=== PATIENT | male | born 2000 | race Caucasian/White ===

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

== ENCOUNTER 2020-01-04 20:47 | Emergency (ER) | payer SELFPAY ==
[2020-01-04 21:11] VITALS: BP 119/75; PULSE 64; RESP 14; TEMP 37.1; O2SAT 98; BMI 23.7
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
[2020-01-04 22:02] VITALS: BP 107/62; PULSE 65; RESP 14; O2SAT 99
== END 2020-01-04 22:03 | disposition home or self-care (01) ==
PROVIDERS: Emergency Provider Nurse Practitioner Family; PCP Pediatrics Adolescent Medicine
DX: S09.8XXA Other specified injuries of head, initial encounter (principal); W20.8XXA Other cause of strike by thrown, projected or falling object, initial encounter
CPT/HCPCS: 12345; 70450; 99281; 99282

== ENCOUNTER 2022-04-23 12:38 | Emergency (ER) | payer SELFPAY ==
[2022-04-23 12:51] VITALS: BP 136/83; PULSE 95; RESP 16; TEMP 37.2; O2SAT 98
--- NOTE | 2022-04-23 12:56 | ECG_ITS ---
[facility] Test Date: 2022-04-23 Pat Name: Santosh Lawson Department: Room: Gender: Male Management Trainer: : 2000 Requested By: Sydnie Alfaro Order Number: [id number] Beverley MD: Andrew Patterson M.D. Measurements Intervals [place] Rate: 82 P: 67 KS: 127 QRS: 89 QRSD: 91 T: 61 QT: 336 QTc: 393 Interpretive Statements SINUS RHYTHM No previous ECG available for comparison Electronically Signed On 04-24-2022 11:11:10 ADMITTING COUNSELOR by Andrew Patterson M.D. [email or web address]
--- NOTE | 2022-04-23 12:57 | XRR_ITS ---
PROCEDURE INFORMATION: Exam: XR Chest Exam date and time: 04/23/2022 1:12 PM Age: 21 years old Clinical indication: Chest wall pain; Additional info: Cp TECHNIQUE: Imaging protocol: Radiologic exam of the chest. Views: 1 view. COMPARISON: No relevant prior studies available. FINDINGS: Lungs: Unremarkable. No consolidation. Pleural spaces: Unremarkable. No pleural effusion. No pneumothorax. Heart/Mediastinum: Unremarkable. No cardiomegaly. Bones/joints: Unremarkable. XR/XR chest 1V portable [id number] IMPRESSION: No acute findings.
[2022-04-23 15:27] LABS: Influenza A by IFA negative (Negative); Influenza B by IFA negative (Negative); SARS Covid-2 Antigen negative (Negative)
--- NOTE | 2022-04-23 15:30 | PC.PHAR ---
PT STATES HE TAKES NO RX OR OTC MEDICATIONS NO MEDS PULL UP ON EXT MED HISTORY
[2022-04-23] MEDS: ketorolac 60 mg/2 mL INJ IM (16:03)
--- NOTE | 2022-04-23 16:45 | ED_ITS ---
HPI - Chest Pain General: Chief Complaint: Chest Pain Stated Complaint: Sharp pains in upper chest, SOB Time Seen by Provider: 04/23/22 13:01 History of Present Illness: 21-year-old male patient presents to the emergency department with chest pain across the anterior aspect of his chest. Patient states that this is more of a burning sensation. Patient denies any shortness of breath. Patient denies any dizziness. Patient denies any cough or congestion. 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 Patient denies any back pain. Patient denies any fever. Patient denies any other past medical history. Associated symptoms: Deny abdominal pain, diaphoresis, dyspnea, fever(s), nausea, palpitations, syncope or vomiting Review of Systems Const: Denies: fever(s), chills, body aches, change in appetite, change in weight, fatigue, malaise or diaphoresis Eyes: Denies: change in vision, blurry vision, blind spots, photophobia, eye discomfort, eye discharge, eye redness, floaters or seeing flashes ENMT: Denies: throat pain, uvular edema, enlarged tonsils, odynophagia, hoarse ness, mouth pain, swelling of lips/tongue, oral sores, bleeding gums, dental pain, dry mouth, ear or mastoid pain, ear discharge, change in hearing, tinnitus, disequilibrium, nasal discharge, nasal congestion, post nasal drip or sinus pain Card: Denies: palpitations, irregular heart rhythm, edema, swelling of feet/ankles, lightheadedness, syncope, pre-syncope, dyspnea on exertion, orthopnea, leg pain with exertion or acrocyanosis Resp: Denies: dyspnea, productive cough, non-productive cough, wheezing, stridor, pain on inspiration, change in phlegm color, hemoptysis or chest congestion GI: Denies: abdominal pain, nausea, vomiting, hematemesis, dysphagia, diarrhea, constipation, GI cramping, change in bowel habits or rectal pain : Denies: flank pain, dysuria, urinary frequency, urinary urgency, urinary hesitancy or hematuria Musc: Denies: neck pain, back pain, extremity pain, extremity swelling, joint pain, joint swelling, joint redness, joint warmth or deformity Skin/Breast: Denies: rash, pruritus, erythema, sores, new lesions, changes in skin color or dry skin Neuro: Denies: headache(s), numbness in extremities, weakness in extremities, sensory changes, lack of coordination, difficulty walking, frequent falls, dizziness, vertigo, confusion, behavioral changes, Slurred speech present, difficulty communicating thoughts or seizure-like activity Psych: Denies: anxiety, depression, suicidal ideation or homicidal ideation Endo: Denies: polyuria, polydipsia, tired all the time, cold intolerance, excessive sweating, flushing, hot flashes or heat intolerance Nahid/Lymph: Denies: easy bruising, easy bleeding, petechiae, purpura, enlarged lymph nodes or tender lymph nodes All/Imm: Denies: urticaria, throat swelling, tongue swelling, facial swelling, acute wheezing or itchy eyes Physical Exam Const: COMMON NORMALS: no acute distress, patient oriented x3, healthy appearing, alert and well nourished GENERAL APPEARANCE: cooperative, comfortable, well kempt and well developed; not ill appearing ORIENTATION/CONSCIOUSNESS: Yes awake, Yes oriented to person, Yes oriented to place and Yes oriented to time HENMT: COMMON NORMALS: normocephalic, atraumatic, hearing grossly normal bilaterally, external ears normal, EAC's normal, TM's normal bilaterally, Normal external nose present, Normal nasal mucous membranes and turbinates present and moist oral mucous membranes HEAD & SCALP: normal to inspection, normocephalic and atraumatic FACE & SINUS: normal facial exam, sinuses nontender and face symmetric NOSE: Normal external nose present, Normal nares present, Normal nasal mucous membranes and turbinates present, No nasal discharge present and Abnormal external nose present EXTERNAL EAR: Yes external ears normal and Yes mastoids normal EXTERNAL AUDITORY CANAL: EAC's normal TYMPANIC MEMBRANE: TM's normal bilaterally MOUTH: Normal oral and palatal mucosa present, lip normal, tongue normal and Normal salivary glands and ducts present THROAT: no uvular edema Eye: COMMON NORMALS: Equal, round and reactive pupils present, EOMs intact bilaterally, conjunctivae normal, no scleral icterus and no papilledema GENERAL EYE: appearance normal, both eyes and all related structures EYELID: eyelids normal CONJUNCTIVA: Yes conjunctivae normal SCLERA: sclerae normal CORNEA: Yes corneas normal PUPIL: Yes Equal, round and reactive pupils present DIRECT OPHTHALMOSCOPY: Yes no papilledema Neck/C-Spine: COMMON NORMALS: full ROM, no lymphadenopathy, supple, no meningeal signs, no JVD and Thyroid normal GENERAL: Yes normal visual inspection and Yes trachea midline THYROID: Thyroid normal CERVICAL SPINE: Yes cervical ROM normal Lymph: LYMPHATIC: no lymphadenopathy noted and no lymphedema noted Resp: COMMON NORMALS: normal respiratory effort, No retractions, No use of accessory muscles and clear to auscultation bilaterally EFFORT & INSPECTION: Yes able to speak in complete sentences and Yes symmetric chest movement AUSCULTATION: clear to auscultation bilaterally Cardio: COMMON NORMALS: no JVD, regular rate and regular rhythm RATE: regular rate RHYTHM: regular rhythm GI: COMMON NORMALS: Normal to inspection, nondistended, normoactive bowel sounds present, Soft to palpation, non-tender, No hepatosplenomegaly present, no masses and no bruits INSPECTION: Yes normal to inspection AUSCULTATION: Yes normoactive bowel sounds PALPATION: Yes Soft to palpation and Yes No hepatosplenomegaly present PERCUSSION: normal to percussion RECTAL EXAM: Yes deferred : COMMON NORMALS: Yes no CVA tenderness BLADDER/KIDNEY EXAM: Yes no CVA tenderness Back/Pelvis: COMMON NORMALS: no CVA tenderness, thoracic and lumbar spine normal to inspection, no thoracic nor lumbar tenderness, thoraco-lumbar ROM normal and straight leg raise negative bilaterally THORACIC SPINE/UPPER BACK: Yes normal to inspection LUMBAR SPINE/LOWER BACK: Yes normal to inspection Extremity: COMMON NORMALS: normal to inspection, full ROM and capillary refill normal GENERAL: Yes normal exam except as noted Neuro: COMMON NORMALS: patient oriented x3, CN's II-XII intact bilaterally, moves all extremities, no focal motor deficits, no sensory deficits noted, deep tendon reflexes 2+ bilaterally and gait normal SENSORIUM/ORIENTATION: Yes alert, Yes oriented to person, Yes oriented to place and Yes oriented to time MENINGEAL SIGNS: Yes no meningeal signs CRANIAL NERVES: Yes CN normal except as noted SPEECH: speech normal GAIT: Yes Normal gait present SENSORY EXAM: Yes extremities MOTOR EXAM: 5/5 motor strength present throughout Psych: COMMON NORMALS: mental status grossly normal, Normal thought process present, cooperative, normal affect, speech normal, activity/motor behavior normal, denies hallucinations, denies homicidal ideation and denies suicidal ideation APPEARANCE: Yes grossly normal and Yes well kempt ATTITUDE: Yes calm ACTIVITY/MOTOR BEHAVIOR: Yes appropriate eye contact SPEECH: Yes normal speech THOUGHT PROCESS: Normal thought process present THOUGHT CONTENT: Yes Normal thought content present ATTENTION/CONCENTRATION: Yes attention grossly intact MEMORY/COGNITION: Yes memory grossly intact INSIGHT: Good insight present (Psych) JUDGEMENT: Good judgement present ( Psych) Skin: COMMON NORMALS: no rashes or lesions noted, no wounds, turgor normal, no jaundice, no petechiae and no mottling GENERAL SKIN EXAM: no rashes or lesions noted and turgor normal Course Vital Signs: Vital signs: Vital Signs Temperature 98.9 F 04/23/22 12:51 Pulse Rate 95 04/23/22 12:51 Respiratory Rate 16 04/23/22 12:51 Blood Pressure 136/83 04/23/22 12:51 Pulse Oximetry 98 04/23/22 12:51 Oxygen Delivery Me thod 04/23/22 12:51 MDM - Chest Pain Medical Decision Making Patient is well-appearing nontoxic in no acute distress.21-year-old male patient presents to the emergency department with chest pain across the anterior aspect of his chest. Patient states that this is more of a burning sensation. Patient denies any shortness of breath. Patient denies any dizziness. Patient denies any cough or congestion. 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 Patient denies any back pain. Patient denies any fever. Patient denies any other past medical history. I did get an EKG on patient EKG shows normal sinus rhythm with a ventricular rate of 82 beats per minutes there is no ST elevation or depression noted. Patient's pain is reproducible. Do not feel any further cardiac work-up is warranted at this time. Patient was given Toradol IM and this did give patient clinical improvement of his symptoms. Patient's findings are consistent with costochondritis. I did order chest x-ray on patient which is negative for any acute findings. Patient's vital signs are stable. Patient does not have any shortness of breath. I did consider PE as a differential however patient does not have symptoms concerning for this. Patient does not have any shortness of breath. Patient is not tachycardic. Patient's pain is reproducible. And patient's pain did resolve with Toradol. I discussed with patient management with NSAIDs. I discussed with patient return precaution as well as home care. Do not feel any further testing is warranted at this time. Patient is medically cleared and appropriate for discharge Differential Diagnosis Likely acute massive pulmonary embolism, acute respiratory failure and acute myocardial infarction Lab Data Radiology Impressions Chest X-Ray 04/23/22 12:57 IMPRESSION: No acute findings. Laboratory Results Influenza Type A Ag negative (Negative) 04/23/22 14:55 Influenza Type B Ag negative (Negative) 04/23/22 14:55 SARS-CoV-2 Ag (Rapid) negative (Negative) 04/23/22 14:55 Discharge Plan Discharge Patient Disposition: Home Clinical Impression: Costalchondritis Condition: Stable Prescriptions: New ibuprofen 800 mg tablet 800 mg PO TID PRN (Reason: pain) Qty: 30 0RF Discharge Orders: Discharge ED (Routine); Ordered 04/23/22 Ordered By: Sydnie Alfaro Referrals: Joanie Mendenhall MD [Primary Care Provider] - Discharge Diet: Advance as tolerated Discharge Activity: Increase activity as tolerated Patient Instructions: Opioid Safety, Pain Management Activity Restrictions/Additional Instructions: Please return to ER with any worsening of symptoms Please take medications as needed and as prescribed Please return with any chest pain or shortness of breath or fever 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
== END 2022-04-23 16:57 | disposition home or self-care (01) ==
PROVIDERS: Emergency Provider Registered Nurse; PCP Pediatrics Adolescent Medicine
DX: M94.0 Chondrocostal junction syndrome [Tietze] (principal); Z20.822 Contact with and (suspected) exposure to COVID-19
CPT/HCPCS: 71045; 87426; 87804; 93005; 96372; 99284; J1885

== ENCOUNTER 2022-04-23 21:26 | Emergency (ER) | payer SELFPAY ==
[2022-04-23 21:43] VITALS: BP 88/55; PULSE 90; RESP 16; TEMP 36.6; O2SAT 96
--- NOTE | 2022-04-23 21:55 | XRR_ITS ---
PROCEDURE INFORMATION: Exam: XR Right Hand Exam date and time: 04/23/2022 11:02 PM Age: 21 years old Clinical indication: Injury or trauma; Other: PT punched mirror; Blunt trauma (contusions or hematomas); Hand; Right; Additional info: Foreign body TECHNIQUE: Imaging protocol: Radiologic exam of the Right hand. Views: 3 or more views. COMPARISON: No relevant prior studies available. FINDINGS: Bones/joints: There is an acute fracture of the distal diametaphysis of the 5th metacarpal of the right hand with posterior apex angular deformity an approximate 3.5 mm foreshortening of the 5th metacarpal. Soft tissues: Normal. XR/XR hand RT min 3V* [id number] IMPRESSION: Boxer's fracture of the 5th metacarpal of the right hand as described above.
--- NOTE | 2022-04-23 22:26 | W.ED.WOUNDLC ---
HPI - Wound/Laceration General: Chief Complaint: Wound/Laceration Stated Complaint: Right hand lacs Time Seen by Provider: 04/23/22 21:31 History of Present Illness: 21 yo male patient presents to ER with right hand pain. Pt states he punched a mirror and cut it open. Pt presents with bleeding controlled. Pt is NVI distally. Pt states his tetanus is UTD Associated symptoms: Denies chills, fever(s), nausea, syncope or vomiting Review of Systems Const: Denies: fever(s), chills, body aches, change in appetite, change in weight, fatigue, malaise or diaphoresis Eyes: Denies: change in vision, blurry vision, blind spots, photophobia, eye discomfort, eye discharge, eye redness, floaters or seeing flashes ENMT: Denies: throat pain, uvular edema, enlarged tonsils, odynophagia, hoarseness, mouth pain, swelling of lips/tongue, oral sores, bleeding gums, dental pain, dry mouth, ear or mastoid pain, ear discharge, change in hearing, tinnitus, disequilibrium, nasal discharge, nasal congestion, post nasal drip or sinus pain Card: Denies: chest pain, palpitations, irregular heart rhythm, edema, swelling of feet/ankles, lightheadedness, syncope, pre-syncope, dyspnea on exertion, orthopnea, leg pain with exertion or acrocyanosis Resp: Denies: dyspnea, productive cough, non-productive cough, wheezing, stridor, pain on inspiration, change in phlegm color, hemoptysis or chest congestion GI: Denies: abdominal pain, nausea, vomiting, hematemesis, dysphagia, diarrhea, constipation, GI cramping, change in bowel habits or rectal pain : Denies: flank pain, dysuria, urinary frequency, urinary urgency, urinary hesitancy or hematuria Musc: Reports: extremity pain; Denies: neck pain, back pain, extremity swelling, joint pain, joint swelling, joint redness, joint warmth or deformity Skin/Breast: Denies: rash, pruritus, erythema, sores, new lesions, changes in skin color or dry skin Neuro: Denies: headache(s), numbness in extremities, weakness in extremities, sensory changes, lack of coordination, difficulty walking, frequent falls, dizziness, vertigo, confusion, behavioral changes, Slurred speech present, difficulty communicating thoughts or seizure-like activity Psych: Denies: anxiety, depression, suicidal ideation or homicidal ideation Endo: Denies: polyuria, polydipsia, tired all the time, cold intolerance, excessive sweating, flushing, hot flashes or heat intolerance Anhid/Lymph: Denies: easy bruising, easy bleeding, petechiae, purpura, enlarged lymph nodes or tender lymph nodes All/Imm: Denies: urticaria, throat swelling, tongue swelling, facial swelling, acute wheezing or itchy eyes Physical Exam Const: COMMON NORMALS: no acute distress, average body habitus, patient oriented x3, no limitations, healthy appearing, alert and well nourished HENMT: THROAT: no uvular edema Neck/C-Spine: COMMON NORMALS: full ROM, no lymphadenopathy, supple, no meningeal signs, no JVD, Thyroid normal and No carotid bruits THYROID: Thyroid normal Resp: COMMON NORMALS: normal respiratory effort, No retractions, No use of accessory muscles, clear to auscultation bilaterally and percussion normal AUSCULTATION: clear to auscultation bilaterally PERCUSSION: percussion normal Cardio: COMMON NORMALS: no JVD, regular rate and regular rhythm RATE: regular rate RHYTHM: regular rhythm Extremity: NARRATIVE EXTREMITY EXAM: there are multiple abrasions and superficial lacerations to the dorsal aspect of left hand Neuro: COMMON NORMALS: patient oriented x3 SENSORIUM/ORIENTATION: Yes alert MENINGEAL SIGNS: Yes no meningeal signs Course Vital Signs: Vital signs: Vital Signs Temperature 98 F 04/23/22 21:43 Pulse Rate 90 04/23/22 21:43 Respiratory Rate 16 04/23/22 21:43 Blood Pressure 88/55 04/23/22 21:43 Pulse Oximetry 96 04/23/22 21:43 MDM - Wound/Laceration Medical Decision Making Patient is well appearing non toxic and in no acute distress. 21 yo male patient presents to ER with right hand pain. Pt states he punched a mirror and cut it open. Pt presents with bleeding controlled. Pt is NVI distally. Pt states his tetanus is UTD Pt is refusing sutures states he will only let me glue it. Pt does have a metacarpal fracture to 5th metacarpal. will clean wound and apply steristripes and ulnar gutter splint for fracture. pt is NVI distally pre and post splint. there was no evidence of FB. Will have follow up with ortho Discharge Plan Discharge Patient Disposition: Home Clinical Impression: Fx metacarpal Condition: Stable Prescriptions: No Action ibuprofen 800 mg tablet 800 mg PO TID PRN (Reason: pain) Qty: 30 0RF Discharge Orders: Discharge ED (Routine); Ordered 04/23/22 Ordered By: Sydnie Alfaro Referrals: Joanie Mendenhall MD [Primary Care Provider] - Discharge Diet: Advance as tolerated Discharge Activity: Limit activity as instructed Patient Instructions: Opioid Safety, Pain Management Activity Restrictions/Additional Instructions: Please wear splint Please keep wound clean and dry Please follow up with Ortho - 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
[2022-04-23 22:57] VITALS: BP 129/74; RESP 16
--- NOTE | 2022-04-27 11:30 | DCPLANNER ---
Addendum entered by Uzma Hyatt 05/08/22 15:26: district manager received the following message from the ortho clinic regarding follow up appointment: attempt made to contact patient - a woman answered and said she will have him call us when he gets off work. will also mail letter to call to schedule w/ dr madison. Original Note: district manager had message to schedule a follow up appointment for patient with ortho. district manager sent patients information to the front office staff at ortho. Patients information will be printed and reviewed. Clinic will call patient with appointment information.
== END 2022-04-23 22:58 | disposition home or self-care (01) ==
PROVIDERS: Emergency Provider Registered Nurse; PCP Pediatrics Adolescent Medicine
DX: S62.396A Other fracture of fifth metacarpal bone, right hand, initial encounter for closed fracture (principal); S61.411A Laceration without foreign body of right hand, initial encounter; W25.XXXA Contact with sharp glass, initial encounter
CPT/HCPCS: 29125; 29530; 73130; 99283

== ENCOUNTER 2022-04-27 00:52 | Emergency (ER) | payer SELFPAY ==
[2022-04-27 01:04] VITALS: BP 146/73; PULSE 84; RESP 18; TEMP 36.7; O2SAT 99; BMI 24.0
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
--- NOTE | 2022-04-27 11:40 | DCPLANNER ---
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 Mailing letter. On 04/28/22 @ 10:41 Carol Mesa Wrote To ENT Front Office Will need scheduled on 05/06 @1 On 04/28/22 @ 10:30 Carol Mesa Wrote To ENT Front Office left message for a family member to have patient reach out to us On 04/27/22 @ 16:33 Carol Mesa Wrote To ENT Front Office Next [facility] spot is 05/13 will have to contact patient to schedule and put on cancelation list Original Note: candy department manager had message to schedule a follow up appointment for patient with ortho. candy department manager sent patients information to the front office staff at ENT. Patients information will be printed and reviewed. Clinic will call patient with appointment information.
== END 2022-04-27 01:35 | disposition home or self-care (01) ==
PROVIDERS: Emergency Provider Emergency Medicine; PCP Pediatrics Adolescent Medicine
DX: S01.21XA Laceration without foreign body of nose, initial encounter (principal); W22.8XXA Striking against or struck by other objects, initial encounter
CPT/HCPCS: 12013; 99283

== ENCOUNTER 2022-10-19 10:47 | Emergency (ER) | payer SELFPAY ==
[2022-10-19 10:49] VITALS: BP 138/82; PULSE 60; RESP 18; TEMP 36.7; O2SAT 98; BMI 25.5
[2022-10-19 10:57] VITALS: BP 138/82; PULSE 60; RESP 18; TEMP 36.7; O2SAT 98
--- NOTE | 2022-10-19 11:09 | ED_ITS ---
HPI - Animal Bite General: Chief Complaint: Animal Bite Stated Complaint: spider bite Time Seen by Provider: 10/19/22 10:53 Source: patient Mode of arrival: ambulatory Limitations: no limitations History of Present Illness: Patient presents emergency department today accompanied by his family for evaluation treatment of spreading redness of his right mid, medial thigh since yesterday. Patient saw an area of redness approximately 2 to 3 cm in diameter to the right medial, mid thigh which she indicated was somewhat itchy. Since that time, he has had spreading redness in a circular fashion now approximately 14+ centimeters in total diameter with a red streak up the right medial thigh towards his groin. He has not had any fevers. He denies any other rash or body aches. Patient reports he did not feel a bite or sting and, was outside in some tall grass recently but, was in long pants-per his report. Review of Systems General: Reports: 10 or more systems reviewed and unremarkable except in HPI and below PFSH ED PFSH: Medical History No pertinent past medical history Social History Substance/Drug Use: never Physical Exam Const: COMMON NORMALS: no acute distress, average body habitus and patient oriented x3 HENMT: COMMON NORMALS: normocephalic, atraumatic, hearing grossly normal bilaterally, Normal external nose present and moist oral mucous membranes HEAD & SCALP: normocephalic and atraumatic NOSE: Normal external nose present Eye: COMMON NORMALS: Equal, round and reactive pupils present, EOMs intact bilaterally and conjunctivae normal CONJUNCTIVA: Yes conjunctivae normal PUPIL: Yes Equal, round and reactive pupils present Neck/C-Spine: COMMON NORMALS: no JVD Lymph: LYMPHATIC: no lymphadenopathy noted Resp: COMMON NORMALS: normal respiratory effort, No retractions and No use of accessory muscles Cardio: COMMON NORMALS: no JVD, regular rate and regular rhythm RATE: regular rate RHYTHM: regular rhythm GI: COMMON NORMALS: Normal to inspection, nondistended, normoactive bowel sounds present : COMMON NORMALS: Yes no CVA tenderness BLADDER/KIDNEY EXAM: Yes no CVA tenderness Back/Pelvis: COMMON NORMALS: no CVA tenderness and thoraco-lumbar ROM normal Extremity: COMMON NORMALS: normal to inspection, full ROM and capillary refill normal Neuro: COMMON NORMALS: patient oriented x3 Psych: COMMON NORMALS: mental status grossly normal, Normal thought process present, cooperative, normal affect and activity/motor behavior normal THOUGHT PROCESS: Normal thought process present Skin: NARRATIVE SKIN EXAM: Patient has an area of dark erythema with induration-no fluctuance, noted to the right medial, mid thigh. Is approximately 3 cm in diameter. Patient has surrounding body piercer erythema with soft skin/no induration approximately 12 to 14 cm in diameter. Patient has an area of erythema in a linear pattern extending up the right medial thigh into the right groin. Patient has a central puncta within the area of induration with a small scab. No signs of any active draining. No signs of any bleeding. No bruising. No signs of petechial rash on the lower extremities. Course Vital Signs: Vital signs: Vital Signs Temperature 98.1 F 10/19/22 10:57 Pulse Rate 60 10/19/22 10:57 Respiratory Rate 18 10/19/22 10:57 Blood Pressure 138/82 10/19/22 10:57 Pulse Oximetry 98 10/19/22 10:57 Oxygen Delivery Me thod Room Air 10/19/22 10:57 MDM - Animal Bite Medical Decision Making Patient presents today for concerns of potential spider bite. Examination of the area is also suspicious for possible tick bite given the area was itchy and I only see 1 central, scabbed puncta. Discussed both options with the patient but, explained that it is the spreading redness and cellulitis that is the biggest concern at this time. Discussed with patient that we can treat with doxycycline to get coverage for both cellulitis as well as tickborne illness. Warned him of sun sensitivity with this medication. Patient was given strict instructions to be seen and reevaluated for new onset fever, joint ache, or petechial rash in the lower extremities. Patient verbalizes understanding and agreement to the treatment plan. Differential Diagnosis Likely bite by animal (Insect bite, tick bite, spider bite, cellulitis, envenomation) Discharge Plan Discharge Patient Disposition: Home Clinical Impression: Cellulitis of right leg Condition: Stable Prescriptions: New doxycycline hyclate 100 mg tablet 100 mg PO Q12H 14 Days Qty: 28 0RF No Action ibuprofen 800 mg tablet 800 mg PO TID PRN (Reason: pain) Qty: 30 0RF Discharge Orders: Discharge ED (Routine); Ordered 10/19/22 Ordered By: Sommer Benito Referrals: Joanie Mendenhall MD [Primary Care Provider] - Discharge Diet: Usual diet Discharge Activity: Increase activity as tolerated Patient Instructions: Cellulitis (ED), Insect Bite or Sting (ED), Tick Bite (ED), Brown Recluse Spider Bite (ED) Activity Restrictions/Additional Instructions: Examination of your leg is concerning for spreading cellulitis. With the streaking redness up your leg, this does indicate a progression along the lymph track. While it is difficult at this time to determine exactly what bit you, it is suspicious for either spider bite or tick bite. Either way, we can treat with antibiotics to give us good coverage for potential pathogens which cause infection for each of these concerns. This medication can make you sensitive to the sun-causing an increased risk of sunburn. Be sure you are wearing sunblock anytime you are out side while on this medication. You may still have some spreading redness over the next 24 hours as the medication builds up in your system however, after that time you should not have any further progression or worsening however, if you do you should be seen and reevaluated. This would include any new onset fever, joint aches, or small purple, spotted rash on the lower extremities. 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
== END 2022-10-19 11:19 | disposition home or self-care (01) ==
PROVIDERS: Emergency Provider Physician Assistant; PCP Pediatrics Adolescent Medicine
DX: L03.115 Cellulitis of right lower limb (principal)
CPT/HCPCS: 99283

== ENCOUNTER 2023-01-04 02:45 | Emergency (ER) | payer SELFPAY ==
--- NOTE | 2023-01-04 02:46 | XRR_ITS ---
PROCEDURE INFORMATION: Exam: XR Chest Exam date and time: 01/04/2023 2:51 AM Age: 22 years old Clinical indication: Right-sided; Patient HX: RT sided chest pain; Additional info: Cp TECHNIQUE: Imaging protocol: Radiologic exam of the chest. Views: 1 view. COMPARISON: CR XR chest 1V portable [id number] 04/23/2022 1:12 PM FINDINGS: Lungs: Unremarkable. No consolidation. Pleural spaces: Unremarkable. No pleural effusion. No pneumothorax. Heart/Mediastinum: Unremarkable. No cardiomegaly. Bones/joints: Unremarkable. XR/XR chest 1V portable [id number] IMPRESSION: No acute findings.
[2023-01-04 02:50] VITALS: BP 138/94; PULSE 86; RESP 16; TEMP 37; O2SAT 95; BMI 25.5
[2023-01-04 02:55] VITALS: BP 138/94; PULSE 73; RESP 16; O2SAT 96
--- NOTE | 2023-01-04 02:56 | W.ED.CHESTPA ---
HPI - Chest Pain General: Chief Complaint: Chest Pain Stated Complaint: chest pain Time Seen by Provider: 01/04/23 02:47 Source: patient Mode of arrival: ambulatory Limitations: no limitations History of Present Illness: 22-year-old male presents here with right-sided chest pain. States sharp pain on the right chest wall is worse with palpation and with deep inspiration started couple hours ago. Denies any known injuries he denies any cough or fever. He had no nausea or vomiting. No medical issues in the past Associated symptoms: Deny abdominal pain, dyspnea, fever(s), nausea or vomiting Review of Systems Const: Denies: fever(s) or chills ENMT: Denies: throat pain or dental pain Card: Reports: chest pain Resp: Denies: dyspnea GI: Denies: abdominal pain, nausea or vomiting Musc: Denies: neck pain or back pain Skin/Breast: Denies: rash Neuro: Denies: headache(s) PFS ED PFSH: Medical History No pertinent past medical history Social History Substance/Drug Use: never Physical Exam Const: COMMON NORMALS: no acute distress, patient oriented x3 and healthy appearing HENMT: COMMON NORMALS: normocephalic and atraumatic HEAD & SCALP: normocephalic and atraumatic Eye: COMMON NORMALS: conjunctivae normal CONJUNCTIVA: Yes conjunctivae normal Neck/C-Spine: COMMON NORMALS: full ROM and supple Chest: COMMONS NORMALS: normal inspection of the chest OTHER: Point tender over right chest wall Resp: COMMON NORMALS: normal respiratory effort, No retractions, No use of accessory muscles and clear to auscultation bilaterally AUSCULTATION: clear to auscultation bilaterally Cardio: COMMON NORMALS: regular rate, regular rhythm and No murmurs present (Cardio) RATE: regular rate RHYTHM: regular rhythm GI: COMMON NORMALS: Soft to palpation, non-tender and no masses PALPATION: Yes Soft to palpation Extremity: COMMON NORMALS: normal to inspection and full ROM Neuro: COMMON NORMALS: patient oriented x3, moves all extremities and no focal motor deficits Psych: COMMON NORMALS: mental status grossly normal, Normal thought process present and cooperative THOUGHT PROCESS: Normal thought process present Skin: COMMON NORMALS: no rashes or lesions noted and no wounds GENERAL SKIN EXAM: no rashes or lesions noted Course Vital Signs: Vital signs: Vital Signs Temperature 98.6 F 01/04/23 02:50 Pulse Rate 73 01/04/23 02:55 Respiratory Rate 16 01/04/23 02:55 Blood Pressure 138/94 01/04/23 02:55 Pulse Oximetry 96 01/04/23 02:55 Oxygen Delivery Me thod Room Air 01/04/23 02:55 MDM - Chest Pain Medical Decision Making Patient presents here with chest pain that is atypical in nature he is point tender over his right chest likely chest wall pain or costochondritis he is young healthy has no risk factors no signs of pneumothorax EKG here is normal we will place him on Naprosyn he is stable for discharge he is follow-up with PCP and return if worsening. Medical Records I reviewed the patient's medical records. Lab Data Radiology Impressions Chest X-Ray 01/04/23 02:46 IMPRESSION: No acute findings. EKG Data EKG 1: I personally reviewed and interpreted this EKG as follows: EKG interpretation date: 01/04/23 EKG interpretation time: 02:59 Interpretation: nsr hr [address] or t wave abnormalities qrs 99 qtc 386 Discharge Plan Discharge Patient Disposition: Home Clinical Impression: Chest pain Condition: Stable Prescriptions: New Naprosyn 500 mg tablet 500 mg PO BID PRN (Reason: pain) Qty: 20 0RF No Action ibuprofen 800 mg tablet 800 mg PO TID PRN (Reason: pain) Qty: 30 0RF Discharge Orders: Discharge ED (Routine); Ordered 01/04/23 Ordered By: Augusto Theodore Discharge Diet: Advance as tolerated Discharge Activity: Resume usual activity Patient Instructions: Costochondritis (ED) 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
--- NOTE | 2023-01-04 02:59 | ECG_ITS ---
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 Measurements Intervals [place] Rate: 71 P: 24 [place]: 144 QRS: 86 QRSD: 99 T: 46 QT: 363 QTc: 396 Interpretive Statements SINUS RHYTHM WITH SINUS ARRHYTHMIA Compared to ECG 04/23/2022 12:56:17 No significant changes Electronically Signed On 01-04-2023 22:39:29 CDT by Jessica Leavitt M.D. [email or web address]
[2023-01-04] MEDS: naproxen 500 mg Tablet PO (03:15)
== END 2023-01-04 03:25 | disposition home or self-care (01) ==
PROVIDERS: Emergency Provider Emergency Medicine
DX: R07.9 Chest pain, unspecified (principal)
CPT/HCPCS: 71045; 93005; 99284

== ENCOUNTER 2024-02-24 20:14 | Emergency (ER) | payer SELFPAY ==
[2024-02-24 20:21] VITALS: BP 127/85; PULSE 83; RESP 16; TEMP 36.8; O2SAT 97; BMI 25.8
[2024-02-24 20:41] VITALS: BP 129/69; PULSE 85; O2SAT 95
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
[2024-02-24 22:31] VITALS: BP 131/77; PULSE 92; RESP 16; O2SAT 99
[2024-02-24 23:05] VITALS: BP 128/51; PULSE 78; O2SAT 98
== END 2024-02-24 23:06 ==
PROVIDERS: Emergency Provider Physician Assistant
DX: S06.311A Contusion and laceration of right cerebrum with loss of consciousness of 30 minutes or less, initial encounter (principal); V86.59XA Driver of other special all-terrain or other off-road motor vehicle injured in nontraffic accident, initial encounter
CPT/HCPCS: 70450; 72125; 99285